=== PATIENT | female | born 1935 | race Caucasian/White ===

== ENCOUNTER → 2016-10-22 | Day surgery (SDC) | payer MEDICARE, OTHER ==
[~2016-10-22] MED LIST: ALBUTEROL17 G1 INH; ALBUTEROL17 GM INH; ALBUTEROL20 ml INH; ALDACTONE PO; ALLEGRA; AMLODIPINE BESYL5 MG PO; ASPIRIN EC81 M1 PO; ASPIRIN81 M2 PO; CALCIUM 250+D T1 TAB PO; CALCIUM500 MG PO; CARAFATE1 G PO; CITALOPRAM HBR10 MG PO; CLARITIN10 M2 PO; FERROUS SULFAT324 MG; FLONASE 0.05% N16 G1; FLONASE16 GM; HYDROCODON-ACE1 EAC1; HYDROCODONE-APA1 T55 PO; IRON1 TA1 PO; LEVOFLOXACIN250 MG PO; LEVOTHYROXINE100 MCG PO; LEVOTHYROXINE75 MCG PO; LEVOTHYROXINE88 MCG; LEVOXYL112 MC1 PO; LOPRESSOR PO; METFORMIN; METOPROLOL SUC100 MG PO; MONTELUKAST SOD10 MG PO; NEXIUM; NORVASC PO; PANTOPRAZOLE SO40 MG PO; PEPCID40 MG PO; PREDNISONE10 MG/DOSE PO; PREDNISONE50 MG PO; SIMVASTATIN20 MG PO; SINGULAIR PO; SKELAXIN PO; ULTRAM PO; VITAMIN C500 M1 PO; VITAMIN D400 UNI2 PO; VITAMIN E100 UNI2 PO; VITAMIN E200 UNIT PO; ZOCOR; ZOCOR20 MG PO
--- NOTE | ~2016-10-22 | OR ---
Unit #: [id number] #: [id number] Patient: MICHA BLUM [id number] [facility] [address], [place] [address] [id number] O MR#: [id number] NAME: MICHA BLUM ROOM: Date of Procedure: 10/22/2016 Admission Date: 10/22/2016 Surgeon: Rishi Juarez M.D. : 1935 Attending Physician: Rishi Juarez M.D. Primary Care Physician: Jennifer Multani M.D. OPERATIVE REPORT PRIMARY CARE PHYSICIAN Jennifer Multani M.D. PREOPERATIVE DIAGNOSES Iron deficiency anemia with heme-positive stools. POSTOPERATIVE DIAGNOSES Hiatal hernia and sigmoid diverticulosis. PROCEDURES PERFORMED Esophagogastroduodenoscopy and colonoscopy. ANESTHESIA Monitored anesthesia. INDICATIONS FOR PROCEDURE An 81-year-old female, who was found by her primary care physician to have iron deficiency anemia and Hemoccult testing was positive. DESCRIPTION OF PROCEDURE The patient was admitted to [facility], positively identified, transported to the endoscopy suite where after appropriate monitoring and positioning, a bite block was placed and she was sedated by the nurse critical care unit manager. The endoscope was passed through the oral cavity into the upper esophagus. Under direct vision, we passed through the esophagus into the stomach, insufflated the stomach, and passed through the pylorus down to the second and third portion of the duodenum. Duodenum and duodenal bulb were normal. As we came back into the stomach, the antrum, fundus, and cardia were all normal. She did have a measurable hiatal hernia of 5 cm. However, the GE junction was well demarcated at 35 cm from the incisors. There was no esophagitis, no Schatzki ring, and no Perez mucosa. The esophageal mucosa appeared normal throughout. The larynx was not well visualized. After completion of the upper scope, the patient was repositioned. On rectal examination, there was no local anorectal pathology. Digital examination was normal. Colonoscope was passed through the anal verge and throughout the extent of the colon to the cecum. The appendiceal orifice and ileocecal valve were photo-documented. On careful antegrade and retrograde visualization, she had moderate sigmoid diverticulosis with no evidence of any recent or active bleeding. The rest of the endoscopic evaluation was unremarkable. In the rectal vault, I retroflexed the scope and there was no internal hemorrhoidal disease. The patient tolerated the procedure well and was Unit #: [id number] #: [id number] Patient: MICHA BLUM transported to recovery in stable condition. Findings were discussed with her family. At this time, iron supplementation would be indicated and I will defer that to Dr. Multani. Dictated by... Siria Dow/mariola TD: 10/23/2016 01:25 JOB #: [id number] OPERATIVE REPORT Page 1 of 1 X Rishi Juarez MD X PROCEDURE OPERATIVE NOTE
== END | disposition home or self-care (01) ==
LOC: COPS 12:08
DX: K57.30 Diverticulosis of large intestine without perforation or abscess without bleeding (principal); K44.9 Diaphragmatic hernia without obstruction or gangrene; R19.5 Other fecal abnormalities; I10 Essential (primary) hypertension; E03.9 Hypothyroidism, unspecified; K21.9 Gastro-esophageal reflux disease without esophagitis; M19.90 Unspecified osteoarthritis, unspecified site; I20.9 Angina pectoris, unspecified; E78.5 Hyperlipidemia, unspecified; E11.65 Type 2 diabetes mellitus with hyperglycemia; J45.21 Mild intermittent asthma with (acute) exacerbation; M81.0 Age-related osteoporosis without current pathological fracture; F32.9 Major depressive disorder, single episode, unspecified; Z88.1 Allergy status to other antibiotic agents; Z79.82 Long term (current) use of aspirin; Z79.899 Other long term (current) drug therapy; Z98.890 Other specified postprocedural states; Z98.51 Tubal ligation status; Z89.622 Acquired absence of left hip joint; Z89.621 Acquired absence of right hip joint; Z88.2 Allergy status to sulfonamides; Z88.0 Allergy status to penicillin; Z86.010 Personal history of colon polyps; Z82.3 Family history of stroke; Z80.0 Family history of malignant neoplasm of digestive organs
CPT/HCPCS: 82947

== ENCOUNTER → 2016-11-09 | Outpatient (CLI) | payer MEDICARE, OTHER ==
--- NOTE | ~2016-11-09 | US6 ---
[facility] A Service of [facility] [place] RADIOLOGY TEXT RESULTS PATIENT: MICHA BLUM LOCATION: [facility] : 37 UNIT #: [id number] AGE: [address]: Kaleigh Bagley APRN SEX: F ORDER DR: [id number] [address] [address] [id number] O MR#: [id number] Acc #: [id number] NAME: MICHA BLUM : 1935 SEX: F STUDY DATE/TIME: 11/09/2016 10:13 UNIT: [facility] ROOM: STUDY DESCRIPTION: US Abdominal Limited Attending Physician: Kaleigh Bagley A.P.R.N. Referring Physician: Kaleigh Bagley A.P.R.N. Ordering Physician: Kaleigh Bagley A.P.R.N. Primary Care Physician: Jeninfer Multani M.D. MEDICAL IMAGING REPORT This report is preliminary unless electronic signature is present. EXAM Right upper quadrant ultrasound 11/09/2016 INDICATIONS Intermittent epigastric and abdominal pain on an 81-year-old female. Abdominal pain 3 weeks and nausea 3 weeks. Sonographic imaging of the right upper quadrant was performed. COMPARISON STUDIES We have no comparison studies. FINDINGS Visualized aspects of the pancreas are unremarkable. Significant portions were obscured by bowel gas and not seen or evaluated. The liver is sonographically unremarkable. No ascites. Liver measures 17.6 cm long axis. The right kidney is nonobstructed and measures 11.8 cm long axis. The gallbladder sonographically unremarkable. No sonographic Naylor sign was described. Extrahepatic common bile duct measures 2-3 mm. IMPRESSION Negative right upper quadrant ultrasound. Dictated by... Nahum Reyes M.D. THIS IS AN ELECTRONICALLY VERIFIED REPORT Nahum Reyes M.D. at 11/09/2016 3:48 PM Orion TD: 11/09/2016 15:23 JOB #: [id number] [facility] A Service of [facility] RADIOLOGY TEXT RESULTS PATIENT: MICHA BLUM LOCATION: [facility] #: [id number] : 37 UNIT #: [id number] AGE: [address]: Kaleigh Bagley APRN SEX: F ORDER DR: MEDICAL IMAGING REPORT Page 1 of 1
== END | disposition home or self-care (01) ==
LOC: SGUS 08:50
DX: R10.13 Epigastric pain (principal)
CPT/HCPCS: 76705